=== PATIENT | female | born 1980 | race Caucasian/White ===

== ENCOUNTER 2019-05-12 18:23 | Emergency (ER) | payer MEDICAID ==
[~2019-05-12] VITALS: Ht 162.6 cm; Wt 52.2 kg
--- NOTE | 2019-05-12 18:41 | NUR ---
Patient discharged to home in stable conditon. Written and verbal after care instructions given. Patient verbalizes understanding of instructions.
== END 2019-05-12 18:43 | disposition home or self-care (01) ==
LOC: ER 18:28
DX: M54.2 Cervicalgia (principal); M62.838 Other muscle spasm; Z91.018 Allergy to other foods
CPT/HCPCS: A4663

== ENCOUNTER 2019-09-23 15:48 | Emergency (ER) | payer OTHER, MEDICAID ==
[~2019-09-23] VITALS: Ht 160 cm; Wt 55.3 kg
--- NOTE | 2019-09-23 16:07 | NUR ---
PT RAFIAD. LEFT WITHOUT BEING SEEN BY
== END 2019-09-23 16:10 | disposition left against medical advice (07) ==
LOC: ER 15:58
DX: R07.81 Pleurodynia (principal); Z53.21 Procedure and treatment not carried out due to patient leaving prior to being seen by health care provider